=== PATIENT | female | born 1995 | race Caucasian/White ===

== ENCOUNTER 2018-06-05 12:40 | Outpatient (CLI) | payer BC ==
--- NOTE | 2018-06-05 16:55 | MRI ---
MRI CERVICAL SPINE 06/05/18 PROVIDED CLINICAL HISTORY: Chronic neck pain. FINDINGS: Cervical alignment appears normal. Vertebral body heights appears preserved. Intervertebral disc spac e heights are preserved. No focal concerning regional marrow signal abnormality is apparent. The visu alized posterior fossa, cervicomedullary junction and cervical spinal cord demonstrate normal signal and morphology. There is no significant central canal or foraminal narrowing apparent throughout. IMPRESSION: Normal MRI of the cervical spine. POS: SALLY
--- NOTE | 2018-06-05 16:58 | MRI ---
MRI THORACIC SPINE 06/05/18 PROVIDED CLINICAL HISTORY: Thoracic back pain. FINDINGS: Comparison is made with the examination performed 08/27/13. Thoracic alignment appears normal. Vertebra l body heights appear preserved. Previously described central disc protrusion at T7-8 is no longer ap parent. Small right paracentral disc protrusion at T5-6 appears stable. No significant central canal or foraminal narrowing is apparent throughout. No focal concerning regional marrow signal abnormality . The thoracic spinal cord demonstrates normal signal and morphology. Schmorl's node formation is see n at multiple levels. The visualized extraspinal tissues appear unremarkable. IMPRESSION: Thoracic disc degenerative changes, advanced for patient age without significant central canal or for aminal narrowing apparent. POS: BRENDA
== END 2018-06-05 12:41 | disposition home or self-care (01) ==
LOC: SCSMRI 12:40
PROVIDERS: ATTEND Neurological Surgery
DX: M54.2 Cervicalgia (principal); M54.6 Pain in thoracic spine; M51.34 Other intervertebral disc degeneration, thoracic region
CPT/HCPCS: 72141; 72146